=== PATIENT | male | born 1945 | race Caucasian/White ===

== ENCOUNTER 2021-07-16 20:13 | Emergency (ER) | payer OTHER ==
[~2021-07-16] VITALS: Ht 170.2 cm; Wt 91.0 kg
[2021-07-16] MEDS ORDERED: IBUPROFEN 600MG TABLET PO ONE (22:30)
[2021-07-16] MEDS ORDERED: ACET-2708 MT (23:24)
[2021-07-16] MEDS ORDERED: NAPR-1176 MT (23:24)
[2021-07-17 00:10] VITALS: BP 125/75
== END 2021-07-17 01:33 | disposition home or self-care (01) ==
LOC: ER 20:13
DX: S82.831A Other fracture of upper and lower end of right fibula, initial encounter for closed fracture (principal); I10 Essential (primary) hypertension; Z88.5 Allergy status to narcotic agent; X50.1XXA Overexertion from prolonged static or awkward postures, initial encounter; Y93.89 Activity, other specified; Y92.013 Bedroom of single-family (private) house as the place of occurrence of the external cause
CPT/HCPCS: 29515; 73610; 99283